=== PATIENT | male | born 1985 | race African-American/Black ===

== ENCOUNTER 2019-05-25 15:02 | Emergency (ER) | payer BC, OTHER ==
--- NOTE | 2019-05-25 15:45 | PDOC ---
Rapid Medical Evaluation Time Seen by Provider: 05/25/19 15:10 Medical Evaluation: Allergies Allergy/AdvReac Type Severity Reaction Status Date / Time No Known Allergies Allergy Verified 11/11/17 11:21 05/25/19 15:28 HPI: COVID-19 CDC guideline data points: The patient is a 33 y/o male presents with no COVID-19 exposure with associated symptoms of chills, weakness, headache, and dry cough since yesterday. Pt is hiv +. Pt denies any lapse of meds. no smoking or drugs. No meds taken for s/s ROS: NEGATIVE: difficulty breathing, shortness of breath, chest pain, lightheadedness, dizziness, nausea, vomiting and diarrhea. Other 12 point ROS reviewed and negative. Exam: General: NAD, Well-Appearing, Awake, Alert Oriented x3. Vital signs stable. ENT: No rhinorrhea or nasal congestion. Neck: FROM, no midline tenderness. Lungs: Clear to auscultation bilaterally without wheezes, rhonchi or rales. Normal excursion. Patient is able to speak in full sentences. Heart: HR: Regular rhythm, S1-S2 present, no murmurs rubs or gallops. Abdomen: Non-distended. MSK/Extremities: No decrease ROM, No obvious deformities. No obvious cyanosis noted. Neuro: Normal Gait, Cranial Nerves II through XII Grossly Intact. Skin: No obvious rashes, bruising. Color Normal Appearing. Assessment/Plan: [Cough/fever] Patient has a history of HIV: , denies recent travel and known COVID exposure. 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 ASSESSMENT: Denies recent travel and known Covid exposure. Pt ordered for covid testing and willhave him ambulate to assess for desatura tion Treatment: 05/25/19 15:59 Pt ambulated with no difficulty, o2 sat 99-100% after ambulation without dyspnea. Patient ordered chest x-ray but refused Covid swab collected 05/26/19 14:31 Discharge Disposition - Diagnosis COVID-19 - Discharge Dispostion Disposition: HOME Condition at time of disposition: Good - Referrals Referrals: Susi Kelley, MICROBIOLOGY LAB ASSISTANT [Primary Care Provider] - - Patient Instructions Printed Discharge Instructions: [facility]-Coronavirus Instructions, [facility] COVID-19 Isolation Protocol Additional Instructions: You were seen for your cough and possible Coronavirus (COVID-19) Await results and need to self quarantine until you have no s/s x 72 hrs. Take Tylenol 650 mg every 6 hours as needed for fever or pain. You may take Robitussin or other [id number] cough syrup. Follow the dosing instructions on the bottle. Warm tea, honey, and salt water gargles may help your symptoms. Please take precautions and self quarantine for 2 weeks and follow-up with your primary care doctor and the Department of Health. Return to the nearest emergency department for shortness of breath, difficulty breathing, chest pain, or if you have any changes in your symptoms. - Post Discharge Activity
[2019-05-25 15:47] VITALS: BP 125/103; PULSE 83; TEMP 98.6
== END 2019-05-25 16:12 | disposition home or self-care (01) ==
LOC: JER 15:02
DX: R05 Cough (principal); Z21 Asymptomatic human immunodeficiency virus [HIV] infection status
CPT/HCPCS: 99282-25; U0002

== ENCOUNTER 2023-03-14 15:33 | Emergency (ER) | payer BC, OTHER ==
[2023-03-14 16:13] VITALS: BP 134/88; PULSE 75; RESP 16; TEMP 98.4; BMI 25.1
[2023-03-14] MEDS ORDERED: DOXYCYCLINE HYCLATE 100 MG CAPSULE PO ONE ×2 (16:16→16:37)
== END 2023-03-14 16:45 | disposition home or self-care (01) ==
LOC: JER 15:33
PROC: 3E023GC Introduction of Other Therapeutic Substance into Muscle, Percutaneous Approach (ICD-10-PCS; principal; 2023-03-14)
DX: A54.9 Gonococcal infection, unspecified (principal)
CPT/HCPCS: 99284-25